=== PATIENT | female | born 1945 | race Caucasian/White ===

== ENCOUNTER 2025-04-24 17:35 | Emergency (ER) | payer MEDICARE ==
[~2025-04-24 17:35] MED LIST: Iopamidol 370 76% 100 ML VIAL ONE
[2025-04-24 18:29] LABS: #Basophils 0.04 10x3/uL (0.0-0.2); #Eosinophils 0.26 10x3/uL (0.0-0.7); #Monocytes 0.53 10x3/uL (0.11-0.59); #Neutrophils 6.07 10x3/uL (1.40-6.50); %Basophils 0.5 % (0.0-1.0); %Eosinophils 3.3 % (0.0-10.0); %Lymphocytes 11.3 % (21.0-51.0); %Monocytes 6.8 % (0.0-10.0); %Neutrophils 77.8 % (42.0-75.0); Hematocrit 41.0 % (36.0-47.0); Hemoglobin 13.1 g/dL (12.0-16.0); Mean Corpuscular Hemoglobin 26.1 pg (27.0-31.0); Mean Corpuscular Volume 81.8 fL (78.0-98.0); Platelet Count 194 10x3/uL (130-400); Red Blood Cell (RBC) Count 5.01 mill/uL (4.20-5.40); White Blood Cell (WBC) Count 7.80 10x3/uL (4.8-10.8)
[2025-04-24 18:55] LABS: ALT (SGPT) 16 U/L (Less than 34); AST (SGOT) 22 U/L (11-34); Albumin 4.1 g/dL (3.1-4.5); Alkaline Phosphatase 93 U/L (40-110); Anion Gap 11 mmol/L (10-20); BUN (Urea Nitrogen) 12 mg/dL (9.8-20.1); Bilirubin, Total 0.4 mg/dL (0.3-1.2); Calc. Creatinine Clearance 0 mL/min (70-130); Calcium 9.9 mg/dL (7.8-10.44); Carbon Dioxide 24 mmol/L (23-31); Chloride 106 mmol/L (98-107); Globulin 3.0 g/dL (2.4-3.5); Glucose 210 mg/dL (83-110); Potassium 4.3 mmol/L (3.5-5.1); Sodium 137 mmol/L (136-145)
== END 2025-04-24 21:52 | disposition home or self-care (01) ==
LOC: ERS 17:35
DX: R42 Dizziness and giddiness (principal); I10 Essential (primary) hypertension; E78.5 Hyperlipidemia, unspecified; E03.9 Hypothyroidism, unspecified; R29.700 NIHSS score 0; Z79.899 Other long term (current) drug therapy; Z55.6 Problems related to health literacy; Z79.890 Hormone replacement therapy
CPT/HCPCS: 70496; 70498; 80053; 84484; 85025; 93005; Q9967